=== PATIENT | female | born 1980 | race Two or more races ===

== ENCOUNTER 2020-01-07 14:23 | Emergency (ER) | payer OTHER ==
[~2020-01-07] VITALS: Ht 165.1 cm; Wt 80.7 kg
[2020-01-07] MEDS ORDERED: SYNTHROID75 MCG (14:42)
== END 2020-01-07 18:44 | disposition home or self-care (01) ==
LOC: ER 14:23
DX: N75.8 Other diseases of Bartholin's gland (principal)

== ENCOUNTER 2022-08-12 05:55 | Day surgery (SDC) | payer OTHER ==
[~2022-08-12] VITALS: Ht 165.1 cm; Wt 84.8 kg
[~2022-08-12 05:55] MED LIST: SYNTHROID75 MCG
[2022-08-12] MEDS ORDERED: tylenol #3 PO (16:52)
[2022-08-12] MEDS ORDERED: NAPR500T14 PO (16:52)
== END 2022-08-12 18:10 | disposition home or self-care (01) ==
LOC: CIR.AMB 05:55
PROVIDERS: ATTEND Obstetrics & Gynecology
DX: Z30.2 Encounter for sterilization (principal); Z30.432 Encounter for removal of intrauterine contraceptive device; Z20.822 Contact with and (suspected) exposure to COVID-19; E03.9 Hypothyroidism, unspecified